=== PATIENT | female | born 2000 | race African-American/Black ===

== ENCOUNTER 2018-07-24 18:41 | Emergency (ER) | payer SELFPAY ==
[2018-07-24 18:56] VITALS: BP 106/61
--- NOTE | 2018-07-24 19:29 | ER Document Report ---
ED Medical Screen (RME) - General Chief Complaint: Vaginal Bleeding Stated Complaint: VAGINAL BLEEDING Time Seen by Provider: 07/24/18 19:27 Primary Care Provider: YANETH ROSE MD [Primary Care Provider] - Follow up as needed Mode of Arrival: Ambulatory Information source: Patient Notes: Patient presents complaining of vaginal bleeding for the past 3 days since hav ing a pelvic exam performed at the health department. Patient states that she was there to get sexually transmitted infection testing. Patient is currently taking Flagyl but complains of continued heavy vaginal bleeding that is not normal for her. Patient denies any abdominal tenderness. I have greeted and performed a rapid initial assessment of this patient. A comprehensive ED assessment and evaluation of the patient, analysis of test results and completion of the medical decision making process will be conducted by additional ED providers. - Related Data Allergies/Adverse Reactions: No Known Allergies Allergy (Verified 07/24/18 18:42) Physical Exam - Vital signs Vitals: Temp Pulse Resp BP Pulse Ox 99.4 F 81 16 106/61 100 07/24/18 18:55 07/24/18 18:55 07/24/18 18:55 07/24/18 18:55 07/24/18 18:55 - General General appearance: Appears well, Alert In distress: None Course - Vital Signs Vital signs: Temp Pulse Resp BP Pulse Ox 99.4 F 81 16 106/61 100 07/24/18 18:55 07/24/18 18:55 07/24/18 18:55 07/24/18 18:55 07/24/18 18:55 Doctor's Discharge - Discharge Referrals: YANETH ROSE MD [Primary Care Provider] - Follow up as needed
[2018-07-24 20:07] LABS: ABSOLUTE BASOPHILS # (AUTO) 0.1 10^3/uL (0.0-0.2); ABSOLUTE EOSINOPHILS # (AUTO) 0.1 10^3/uL (0.0-0.6); ABSOLUTE LYMPHOCYTES (AUTO) 2.1 10^3/uL (0.5-4.7); ABSOLUTE MONOCYTES (AUTO) 0.7 10^3/uL (0.1-1.4); ABSOLUTE NEUT (AUTO) 3.2 10^3/uL (1.7-8.2); BASOPHILS % (AUTO) 0.9 % (0-2); EOSINOPHILS % (AUTO) 1.2 % (0-6); HEMATOCRIT 36.4 % (36.0-47.0); HEMOGLOBIN 11.6 g/dL (12.0-15.5); LYMPHOCYTES % (AUTO) 33.9 % (13-45); MEAN CORPUSCULAR HEMOGLOBIN 21.7 pg (27.0-33.4); MEAN CORPUSCULAR HGB CONC 31.9 g/dL (32.0-36.0); MEAN CORPUSCULAR VOLUME 68 fl (80-97); MONOCYTES % (AUTO) 10.7 % (3-13); PLATELET COUNT 271 10^3/uL (150-450); RED BLOOD COUNT 5.36 10^6/uL (3.72-5.28); RED CELL DISTRIBUTION WIDTH 15.6 % (11.5-14.0); SEGMENTED NEUTROPHILS % (AUTO) 53.3 % (42-78); TOTAL CELLS COUNTED % (AUTO) 100 %; WHITE BLOOD COUNT 6.1 10^3/uL (4.0-10.5)
[2018-07-24 20:43] LABS: APPEARANCE,URINE SLIGHTLY-CLOUDY; BILIRUBIN,URINE NEGATIVE (NEGATIVE); COLOR,URINE YELLOW; GLUCOSE, URINE NEGATIVE (NEGATIVE); KETONES,URINE NEGATIVE (NEGATIVE); LEUKOCYTE ESTERASE,URINE NEGATIVE (NEGATIVE); NITRITE,URINE NEGATIVE (NEGATIVE); PROTEIN,URINE NEGATIVE (NEGATIVE); URINE SPECIFIC GRAVITY 1.006; UROBILINOGEN,URINE NEGATIVE mg/dL (<2.0)
--- NOTE | 2018-07-24 21:13 | ER Document Report ---
HPI - HPI Patient complains to provider of: Abnormal uterine bleeding Time Seen by Provider: 07/24/18 19:27 Onset: Other - 4 weeks Onset/Duration: Persistent, Waxing and waning Quality of pain: No pain Severity: Moderate Pain Level: 3 Context: Patient is a 18-year-old female comes emergency room states that she has been having some abnormal uterine bleed for the past 4 weeks. She went to the health department originally 4 weeks ago and they did a pelvic exam and right after that exam she started bleeding. Patient went to a different health department and [facility] 3 days ago where they did a pelvic exam and told her she had bacterial vaginosis and placed on Flagyl. Also told her that the bleeding was probably due to some irritation that may been caused by the first pelvic exam. Patient states she is currently on the Implanon form of control. She has been on it for 6 months now. She had abnormal bleeding when she first started and then she leveled out and she was told by the last health department person that if it was going to cause anything it would cause just some mild spotting. Patient also informs me that she has not been sexually active in several weeks she has had no dyspareunia and she has had no other indications of sexually transmitted diseases. She believes that her bacterial vaginosis was caused by s ome soaps that she internally. Associated Symptoms: None Exacerbated by: Denies Relieved by: Denies Similar symptoms previously: Yes Recently seen / treated by doctor: Yes - ROS ROS below otherwise negative: Yes Systems Reviewed and Negative: Yes All other systems reviewed and negative - CONSTITUTIONAL Constitutional: DENIES: Fever, Chills - EENT EENT: DENIES: Sore Throat, Ear Pain, Nasal Drainage-Clear, Eye problems - NEURO Neurology: DENIES: Headache, Weakness, Vision blurred - CARDIOVASCULAR Cardiovascular: DENIES: Chest pain - RESPIRATORY Respiratory: DENIES: Trouble Breathing - GASTROINTESTINAL Gastrointestinal: DENIES: Abdominal Pain, Nausea, Patient vomiting, Black / Bloody Stools - URINARY Urinary: DENIES: Dysuria, Urgency, Frequency - REPRODUCTIVE Reproductive: REPORTS: Abnormal bleeding / discharge. DENIES: : - DERM Skin Color: Normal Skin Problems: None Past Medical History - General Information source: Patient - Social History Smoking Status: Never Smoker Cigarette use (# per day): No Chew tobacco use (# tins/day): No Smoking Education Provided: No Frequency of alcohol use: None Drug Abuse: None Lives with: Family Family History: Reviewed & Not Pertinent Patient has suicidal ideation: No Patient has homicidal ideation: No Renal/ Medical History: Denies: Hx Peritoneal Dialysis Vertical Provider Document - CONSTITUTIONAL Agree With Documented VS: Yes Exam Limitations: No Limitations General Appearance: WD/WN, No Apparent Distress Notes: PHYSICAL EXAMINATION: GENERAL: Well-appearing, well-nourished and in no acute distress. HEAD: Atraumatic, normocephalic. EYES: Pupils equal round and reactive to light, extraocular movements intact, conjunctiva are normal. ENT: Nares patent, oropharynx clear without exudates. Moist mucous membranes. NECK: Normal range of motion, supple without lymphadenopathy LUNGS: Breath sounds clear to auscultation bilaterally and equal. No wheezes rales or rhonchi. HEART: Regular rate and rhythm without murmurs ABDOMEN: Soft, nontender, nondistended abdomen. No guarding, no rebound. No masses appreciated. Patient has bowel sounds all 4 quads. Suprapubically she has no tenderness to palpation. Female : deferred Musculoskeletal: Normal range of motion, no pitting or edema. No cyanosis. NEUROLOGICAL: Normal speech, normal gait. Normal sensory, motor exams PSYCH: Normal mood, normal affect. SKIN: Warm, Dry, normal turgor, no rashes or lesions noted. The next discharge - INFECTION CONTROL TRAVEL OUTSIDE OF THE [place] IN LAST 30 DAYS: No - HEENT HEENT: Atraumatic Course - Re-evaluation Re-evalutation: 07/24/18 21:13 Discussion with patient and finding out that she was on the Implanon and only been on it 6 months now we were traced back to her original problems which were heavy bleeding when she first got it to tapered off to normalcy and then now is coming back to heavy bleeding again patient has had 2 pelvis within the last week nothing was found at those times. I informed patient that I would be more than happy to do a pelvic exam on her but did not see a reason to do so. Given that she is on the Implanon she needs to return to [facility] and have them reexamine the circumstances of its implantation and also of whether or not it may be something that is not working for her and causing the abnormal bleeding. I informed her that I would check her blood work to make sure she was not symptomatic anemic which she is not dizzy or lightheaded and if not that she could be discharged home safely. Patient did refuse the pelvic examination. She had shown me a picture of the amount of blood in the stool about 4 days ago and it light amount of discoloration nothing really bright red and thick. So at this point with patient having a hemoglobin of 11 I feel safe to discharge her home and she will go back to the health department for follow-up and to discuss the Implanon to see if there is other options for her out there. - Vital Signs Vital signs: Temp Pulse Resp BP Pulse Ox 99.4 F 81 16 106/61 100 07/24/18 18:55 07/24/18 18:55 07/24/18 18:55 07/24/18 18:55 07/24/18 18:55 - Laboratory Result Diagrams: 07/24/18 19:52 Laboratory results interpreted by me: 07/24/18 07/24/18 19:52 19:52 RBC 5.36 H Hgb 11.6 L MCV 68 L MCH 21.7 L MCHC 31.9 L RDW 15.6 H Urine Blood LARGE H Discharge - Discharge Clinical Impression: Dysfunctional uterine bleeding Disposition: HOME, SELF-CARE Instructions: Dysfunctional Uterine Bleeding ([facility]) Additional Instructions: As we discussed with you having to pelvics in the past couple of weeks and having no abnormalities found I really think this goes along with the Implanon. Platelets can cause some serious heavy duty vaginal bleeding as well as spotting. I believe that he should go back to where you had it inserted and discussed with them the bleeding aspects of what may be causing you to have it. Should you have any concerns or problems or need further evaluation with continued bleeding please return to ER for recheck and pelvic examination. Forms: Return to Work Referrals: YANETH ROSE MD [Primary Care Provider] - Follow up as needed
== END 2018-07-25 08:09 | disposition home or self-care (01) ==
LOC: ER 18:41
DX: N93.8 Other specified abnormal uterine and vaginal bleeding (principal); Z79.899 Other long term (current) drug therapy
CPT/HCPCS: 36415; 81001; 84703; 85025; 99284